=== PATIENT | male | born 1995 | race Caucasian/White ===

== ENCOUNTER 2018-08-24 14:45 | Emergency (ER) | payer BC ==
[~2018-08-24] VITALS: Ht 177.8 cm; Wt 77.3 kg
[2018-08-24 17:15] VITALS: BP 127/85
== END 2018-08-24 17:25 | disposition home or self-care (01) ==
LOC: EMS 14:48
DX: S63.91XA Sprain of unspecified part of right wrist and hand, initial encounter (principal); W31.89XA Contact with other specified machinery, initial encounter; Y93.89 Activity, other specified; Y92.69 Other specified industrial and construction area as the place of occurrence of the external cause; Y99.0 Civilian activity done for income or pay